=== PATIENT | female | born 1965 | race Caucasian/White ===

== ENCOUNTER 2018-09-29 05:40 | Inpatient (IN) | payer BC ==
[~2018-09-29] VITALS: Ht 160 cm; Wt 103.9 kg
[2018-09-29] MEDS ORDERED: LR 1,000 ML IV SCH ×3 (07:25→09:39)
[2018-09-29] MEDS ORDERED: CLINDAMYCIN 900 mg/50mL D5W 50 ML IV ONE ×2 (07:30→07:32)
[2018-09-29] MEDS ORDERED: METOCLOPRAMIDE HCL 10 MG/2 ML VIAL IVP PRN (08:30)
[2018-09-29] MEDS ORDERED: DIPHENHYDRAMINE INJ 50 MG/ML VIAL IM PRN (08:30)
[2018-09-29] MEDS ORDERED: ONDANSETRON HCL 4 MG/2 ML VIAL IVP PRN (08:30)
[2018-09-29] MEDS ORDERED: MEPERIDINE HCL/PF 25 MG/ML DISP.SYRIN IVP PRN (08:30)
[2018-09-29] MEDS ORDERED: KETOROLAC TROMETHAMINE 60 MG/2 ML VIAL IM PRN (08:30)
[2018-09-29] MEDS ORDERED: NALOXONE HCL 0.4 MG/ML AMP (NARCAN) IVP PRN (08:30)
[2018-09-29] MEDS ORDERED: MORPHINE SULFATE 10MG/10ML PF AMP SP SCH (08:30)
[2018-09-29] MEDS ORDERED: MEPERIDINE HCL/PF 50 MG/ML AMP IVP PRN ×2 (08:30)
[2018-09-29 09:38] VITALS: BP_SYST 107
[2018-09-29] MEDS ORDERED: OXYTOCIN/0.9 % SODIUM CHLORIDE 1,000 ML IV ONE (09:39)
[2018-09-29] MEDS ORDERED: BISACODYL 10 MG/SUPPOSITORY RC PRN (09:45)
[2018-09-29] MEDS ORDERED: MEASLES,MUMPS&RUBELLA VACC/PF 12500 UNIT/0.5 ML VIAL SUBQ PRN (09:45)
[2018-09-29] MEDS ORDERED: LANOLIN 7 GM OINT. TP PRN (09:45)
[2018-09-29] MEDS ORDERED: ANUSOL 1 EA SUPP.RECT (PREPARATION H) RC PRN (09:45)
[2018-09-29] MEDS ORDERED: RHO(D) IMMUNE GLOBULIN/MALTOSE 1500 UNITS/1.3 ML (WINHRO) IM PRN (09:45)
[2018-09-29] MEDS ORDERED: DIPHENHYDRAMINE INJ 50 MG/ML VIAL ONE (10:26)
[2018-09-29] MEDS ORDERED: MIDAZOLAM HCL 5 MG/5 ML VIAL IVP ONE (20:18)
[2018-09-29] MEDS ORDERED: OXYTOCIN 10 UNIT/ML VIAL IV ONE (20:18)
[2018-09-29] MEDS ORDERED: ePHEDrine sulfate 50 MG/ML VIAL IVP ONE (20:18)
[2018-09-29] MEDS ORDERED: LR 1,000 ML IV.SOLN IV ONE (20:18)
[2018-09-29] MEDS ORDERED: ONDANSETRON HCL 4 MG/2 ML VIAL IVP ONE (20:18)
[2018-09-29] MEDS ORDERED: MORPHINE SULFATE 10MG/10ML PF AMP EP ONE (20:18)
[2018-09-29] MEDS ORDERED: TEMAZEPAM 15 MG CAPSULE PO PRN (21:00)
[2018-09-30 06:47] LABS: HEMATOCRIT 31.2 % (36-48); HEMOGLOBIN 10.2 g/dL (12.0-16.0)
[2018-09-30] MEDS: SIMETHICONE 80 MG TAB.CHEW PO PRN ×5 (06:50→21:01)
[2018-09-30] MEDS: OXYCODONE/ACETAMINOPHEN 5-325 TABLET PO PRN ×4 (06:52→21:01)
[2018-09-30] MEDS: SENNOSIDES/DOCUSATE SODIUM 1 TAB TABLET(SENOKOT-S) PO PRN (10:45)
[2018-09-30] MEDS: DOCUSATE SODIUM 100 MG CAPSULE PO PRN ×2 (10:45→21:00)
[2018-09-30] MEDS ORDERED: IBUPROFEN 600 MG TABLET PO ONE (12:00)
[2018-09-30] MEDS ORDERED: IBUPROFEN 600 MG TABLET ONE (12:48)
[2018-09-30] MEDS: IBUPROFEN 800 MG TABLET PO SCH (18:03)
[2018-10-01] MEDS: IBUPROFEN 800 MG TABLET PO SCH ×4 (00:53→18:47)
[2018-10-01] MEDS: SIMETHICONE 80 MG TAB.CHEW PO PRN ×3 (00:53→21:13)
[2018-10-01] MEDS: OXYCODONE/ACETAMINOPHEN 5-325 TABLET PO PRN ×6 (00:54→21:14)
[2018-10-01] MEDS: DOCUSATE SODIUM 100 MG CAPSULE PO PRN ×3 (06:54→21:13)
[2018-10-01] MEDS: SENNOSIDES/DOCUSATE SODIUM 1 TAB TABLET(SENOKOT-S) PO PRN ×2 (09:21→18:53)
[2018-10-02] MEDS: IBUPROFEN 800 MG TABLET PO SCH ×4 (06:00→23:26)
[2018-10-02] MEDS: OXYCODONE/ACETAMINOPHEN 5-325 TABLET PO PRN ×5 (07:02→21:55)
[2018-10-02] MEDS: DOCUSATE SODIUM 100 MG CAPSULE PO PRN (08:51)
[2018-10-02] MEDS: SIMETHICONE 80 MG TAB.CHEW PO PRN ×2 (08:51→14:57)
[2018-10-03] MEDS: OXYCODONE/ACETAMINOPHEN 5-325 TABLET PO PRN ×4 (03:59→14:25)
[2018-10-03] MEDS: IBUPROFEN 800 MG TABLET PO SCH ×2 (06:17→12:14)
[2018-10-03] MEDS: SENNOSIDES/DOCUSATE SODIUM 1 TAB TABLET(SENOKOT-S) PO PRN (06:18)
[2018-10-03] MEDS: SIMETHICONE 80 MG TAB.CHEW PO PRN ×2 (09:12→14:25)
[2018-10-03] MEDS: DOCUSATE SODIUM 100 MG CAPSULE PO PRN (09:12)
== END 2018-10-03 15:40 | disposition home or self-care (01) | DRG 787 ==
LOC: SPU 05:40
PROVIDERS: ADMIT Obstetrics & Gynecology; ATTEND Obstetrics & Gynecology
PROC: 10D00Z1 Extraction of Products of Conception, Low, Open Approach (ICD-10-PCS; principal; 2018-09-29 07:30)
DX: O34.211 Maternal care for low transverse scar from previous cesarean delivery (principal); Z68.41 Body mass index [BMI] 40.0-44.9, adult; E66.01 Morbid (severe) obesity due to excess calories; O69.81X0 Labor and delivery complicated by cord around neck, without compression, not applicable or unspecified; Z3A.38 38 weeks gestation of pregnancy; Z37.0 Single live birth; Z82.61 Family history of arthritis; Z88.0 Allergy status to penicillin; Z88.1 Allergy status to other antibiotic agents
CPT/HCPCS: 36415; 85018-TC; 86592; 86886; 86900; 86901; 94760; J1200; J1885; J2250; J2274; J2405; J2590; J3490; J7120